=== PATIENT | female | born 1995 | race Caucasian/White ===

== ENCOUNTER 2023-09-14 08:11 | Outpatient (CLI) | payer OTHER, SELFPAY ==
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
== END 2023-09-14 08:12 | disposition home or self-care (01) ==
LOC: CHSIMG 08:13
PROVIDERS: PCP Physician Assistant; Visit Provider Physician Assistant
DX: Z78.0 Asymptomatic menopausal state (principal); M85.89 Other specified disorders of bone density and structure, multiple sites
CPT/HCPCS: 77080

== ENCOUNTER 2025-05-03 14:48 | Emergency (ER) | payer OTHER, SELFPAY ==
[2025-05-03 15:06] VITALS: BP 109/73; PULSE 78; RESP 16; TEMP 36.4; O2SAT 99
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
== END 2025-05-03 15:28 | disposition home or self-care (01) ==
PROVIDERS: Emergency Provider Nurse Practitioner Family; PCP Family Medicine
DX: S06.0X0A Concussion without loss of consciousness, initial encounter (principal); W22.8XXA Striking against or struck by other objects, initial encounter
CPT/HCPCS: 99203; G0463